=== PATIENT | male | born 2000 | race Caucasian/White ===

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

== ENCOUNTER → 2023-10-31 | Outpatient (CLI) | payer BC ==
--- NOTE | 2023-10-31 15:08 | US ---
EXAMINATION TYPE: US abdomen limited DATE OF EXAM: 10/31/2023 COMPARISON: NONE CLINICAL INDICATION: Male, 23 years old with history of R22.2 LOCALIZED SWELLING, MASS AND Lump, trun k; Patient states that he has a scar that has been bothering him.. 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 He states that his doctor wants to see if there is anythin g under the scar that can be removed. Area of concern was scanned, no sonographic abnormalities seen with ultrasound today
== END | disposition home or self-care (01) ==
LOC: RADUSWWP 11:31
PROVIDERS: ATTEND Surgery Plastic and Reconstructive Surgery
DX: L90.5 Scar conditions and fibrosis of skin (principal); R22.2 Localized swelling, mass and lump, trunk
CPT/HCPCS: 76705

== ENCOUNTER → 2023-12-23 | Outpatient (CLI) | payer BC ==
[2023-12-23 17:30] LABS: HCT 46.4 % (39.6-50.0); HGB 15.9 g/dL (13.0-17.0); MCH 28.8 pg (27.0-32.0); MCHC 34.3 g/dL (32.0-37.0); MCV 84.1 FL (80.0-97.0); Mean Platelet Volume 11.9 FL (9.5-12.2); NRBC Per 100 WBC 0 X 10*3/uL (0.00-0.01); Platelet Count 217 X 10*3/uL (140-440); RBC 5.52 X 10*6/uL (4.40-5.60); RDW 13.1 % (11.5-14.5); WBC 5.06 X 10*3/uL (4.50-10.00)
== END | disposition home or self-care (01) ==
LOC: LABPAT 10:07
PROVIDERS: ATTEND Surgery Plastic and Reconstructive Surgery
DX: Z01.812 Encounter for preprocedural laboratory examination (principal)
CPT/HCPCS: 36415; 85027

== ENCOUNTER 2023-12-25 06:45 | Day surgery (SDC) | payer BC ==
[2023-12-22 14:02] VITALS: BMI 28.1
[~2023-12-25 06:45] MED LIST: ONDANSETRON 4 MG/2 ML VIAL IVP PRN; Pre Op ABX Message 1 EACH MISC MISCELLANE ONE
[2023-12-25] MEDS ORDERED: SCOPOLAMINE 1 MG/72 HR PATCH TRANSDERM ONE (07:29)
[2023-12-25] MEDS: LACTATED RINGERS 1,000 ML IV SCH (07:40)
[2023-12-25] MEDS: ACETAMINOPHEN TAB 500 MG TAB PO PRN (08:03)
[2023-12-25] MEDS: MELOXICAM 7.5 MG TAB PO PRN (08:03)
[2023-12-25] MEDS: DEXAMETHASONE SOD PHOSPHATE 4 MG/ML 1 ML VIAL IV ONE (08:04)
[2023-12-25] MEDS: ONDANSETRON 4 MG/2 ML VIAL IVP ONE (08:04)
[2023-12-25] MEDS: HEPARIN SODIUM,PORCINE 5,000 UNIT/ML 1 ML VIAL SQ PRN (08:13)
--- NOTE | 2023-12-25 08:56 | P.GSHP ---
History of Present Illness H&P Date: 12/25/23 CHIEF COMPLAINT: History of intra-abdominal adhesions HISTORY OF PRESENT ILLNESS: The patient is a 23-year-old male who presents with history of intra-abdominal adhesions from prior surgeries including increasing abdominal pain. He now presents for diagnostic laparoscopy including lysis of adhesions. PAST MEDICAL HISTORY: Please see list. PAST SURGICAL HISTORY: Please see list. MEDICATIONS: Please see list. ALLERGIES: Please see list. SOCIAL HISTORY: No illicit drug use FAMILY HISTORY: No reports of Crohn disease or ulcerative colitis. REVIEW OF ORGAN SYSTEMS: CONSTITUTIONAL: Denies any fever or chills. Denies recent weight loss or weight gain. HEENT: Denies any trouble with vision, hearing or nosebleeds. No difficulty swallowing. LYMPHATIC: The patient denies any lumps and bumps around the neck. ENDOCRINE: Denies any thyroid disorders. Denies any blood sugar glucose intolerance. RESPIRATORY: Denies pneumonia. Denies any troubles with breathing or dyspnea on exertion. CARDIOVASCULAR: Denies any chest pain, palpitations, or recent heart attacks. GASTROINTESTINAL: History of constipation. GENITOURINARY: Denies any blood in urine or increased urinary frequency. MUSCULOSKELETAL: Denies any back pain, stiffness, joint arthritis. NEUROLOGIC: Denies any numbness or tingling along the distal extremities. No seizure disorders or headaches. PSYCHIATRIC: Denies depression or suidical ideation. HEMATOLOGIC: Denies any abnormal bleeding or bruising. BREASTS: Denies any breast lumps, pain or nipple discharge. PHYSICAL EXAM: GENERAL: Well-developed pleasant male in no acute distress. HEENT: No scleral icterus. Extraocular movements grossly intact. Moist buccal mucosa. NECK: Supple without lymphadenopathy. CHEST: Unlabored respirations. Equal bilateral excursions. CARDIOVASCULAR: Regular rate and rhythm. Distal 2+ pulses. ABDOMEN: Soft, nondistended. Tender generalized abdominal pain. MUSCULOSKELETAL: No clubbing, cyanosis, or edema. SKIN: Well perfused. PSYCH: Alert and oriented to self, place and time ASSESSMENT: 1. Abdominal pain 2. History of prior open laparotomy 3. Intra-abdominal adhesions. PLAN: 1. Robotic lysis of adhesions were described in detail including risk of injury to the intestine, need for further surgery, and open technique. 2. DVT prophylaxis. 3. Antibiotic prophylaxis. Past Medical History Past Medical History: No Reported History History of Any Multi-Drug Resistant Organisms: None Reported Past Surgical History: Appendectomy Additional Past Surgical History / Comment(s): ruptured appendix with abd abscess (08/2018) Past Anesthesia/Blood Transfusion Reactions: No Reported Reaction Past Psychological History: Anxiety, Depression Smoking Status: Former smoker Past Alcohol Use History: Rare Additional Past Alcohol Use History / Comment(s): quit smoking over a year ago, smoked approx 1 year. Past Drug Use History: None Reported - Past Family History Mother Family Medical History: No Reported History Medications and Allergies Home Medications Medication Instructions Recorded Confirmed Type No Known Home Medications 12/22/23 12/25/23 History Allergies Allergy/AdvReac Type Severity Reaction Status Date / Time No Known Allergies Allergy Verified 12/25/23 07:39 Surgical - Exam Vital Signs Temp Pulse Resp BP Pulse Ox 97.8 F 63 16 132/62 100 12/25/23 07:42 12/25/23 07:42 12/25/23 07:42 12/25/23 07:42 12/25/23 07:42
[2023-12-25 09:15] LABS: Basophils % (A) 1 %; Eosinophils # (A) 0.1 k/uL (0-0.7); Eosinophils % (A) 2 %; HCT 41.9 % (39.0-53.0); HGB 14.9 gm/dL (13.0-17.5); Lymphocytes # (A) 1.4 k/uL (1.0-4.8); Lymphocytes % (A) 29 %; MCH 29.4 pg (25.0-35.0); MCHC 35.6 g/dL (31.0-37.0); MCV 82.6 fL (80.0-100.0); Monocytes # (A) 0.3 k/uL (0-1.0); Monocytes % (A) 6 %; Neutrophils # (A) 2.8 k/uL (1.3-7.7); Neutrophils % (A) 60 %; Platelet Count 170 k/uL (150-450); RBC 5.07 m/uL (4.30-5.90); RDW 13.5 % (11.5-15.5); WBC 4.7 k/uL (3.8-10.6)
[2023-12-25 09:22] LABS: ALT 53 U/L (4-49); AST 42 U/L (17-59); African American GFR (CKD) >90 (>60 ml/min/1.73 sqM); Albumin 4.1 g/dL (3.5-5.0); Alkaline Phosphatase 88 U/L (38-126); Anion Gap 7 mmol/L; Blood Urea Nitrogen 12 mg/dL (9-20); Calcium 9.3 mg/dL (8.4-10.2); Carbon Dioxide 24 mmol/L (22-30); Chloride 109 mmol/L (98-107); Glucose 96 mg/dL (74-99); Non-African American GFR(CKD) >90 (>60 ml/min/1.73 sqM); Potassium 4.1 mmol/L (3.5-5.1); Sodium 140 mmol/L (137-145); Total Bilirubin 0.8 mg/dL (0.2-1.3); Total Protein 6.5 g/dL (6.3-8.2)
[2023-12-25] MEDS ORDERED: GLYCOPYRROLATE 0.2 MG/ML 2 ML VIAL ONE (09:55)
[2023-12-25] MEDS ORDERED: NEOSTIGMINE 1 MG/ML 10 ML VIAL ONE (09:55)
[2023-12-25] MEDS ORDERED: ROCURONIUM 10 MG/ML (5 ML VIAL) IV ONE (09:55)
[2023-12-25] MEDS ORDERED: PHENYLEPHRINE-0.9% NACL SYG 1,000 MCG/10 ML SYRINGE ONE (09:55)
[2023-12-25] MEDS ORDERED: fentaNYL (PF) 50 MCG/ML 2 ML AMP ONE (09:55)
[2023-12-25] MEDS ORDERED: SUCCINYLCHOLINE CHLORIDE 200 MG/10 ML VIAL IV ONE (09:55)
[2023-12-25] MEDS ORDERED: PROPOFOL 10 MG/ML 20 ML VIAL IV ONE (09:55)
[2023-12-25] MEDS ORDERED: LIDOCAINE 1% INJ 10MG/ML (20 ML MDV) ONE (09:55)
[2023-12-25] MEDS ORDERED: ESMOLOL 100 MG/10 ML VIAL ONE (09:55)
[2023-12-25] MEDS ORDERED: MIDAZOLAM 2 MG/2 ML VIAL ONE (09:55)
[2023-12-25] MEDS: LACTATED RINGERS 1,000 ML IV ONE ×2 (10:25→12:03)
[2023-12-25] MEDS: LIDOCAINE 2%-EPI 1:100,000 20 ML VIAL SQ ONE (10:30)
[2023-12-25 11:33] VITALS: TEMP 97
[2023-12-25] MEDS: HYDROmorphone 0.5 MG/0.5 ML SYRINGE IVP PRN (11:49)
--- NOTE | 2023-12-25 11:54 | P.OP ---
Date of Procedure: 12/25/23 Description of Procedure: SURGEON: ISABELLE CIFUENTES MD PREOPERATIVE DIAGNOSES: 1. Periumbilical and lower abdominal pain 2. History of open appendectomy due to perforation POSTOPERATIVE DIAGNOSES: 1. Periumbilical and lower abdominal pain 2. History of open appendectomy due to perforation OPERATION: 1. Robotic-assisted da Benja Xi laparoscopic with lysis of adhesions ESTIMATED BLOOD LOSS: 5 mL. SPECIMENS REMOVED: None. COMPLICATIONS: None. OPERATIVE FINDINGS: 1. No inguinal hernias identified 2. Greater omentum to abdominal wall adhesion of the pelvis 3. Small bowel unremarkable without dilation 4. No abdominal wall hernias identified INDICATIONS: The patient is a 23-year-old male who presents with moderate lower abdominal pain. Has personal history of prior open appendectomy due to perforation. Surgical intervention with diagnostic laparoscopy, lysis of adhe sions were described. Informed consent was obtained. Robotic assisted laparoscopic approach was described. Benefits and risks of the procedure including but not limited to bleeding, infection was described. Informed consent was obtained. DESCRIPTION OF PROCEDURE: Patient was brought to the operating room, placed in supine position. After general induction, the abdomen had been prepped and draped in standard sterile fashion. The robotic da Benja XI system was primed. After a timeout protocol was performed, the patient had been prepped and draped in standard sterile fashion. The robot was docked along the left lateral abdomen. Please note prior to docking of the robot; however, a 5 mm 0 degrees laparoscopic trocar entry was performed along the left upper quadrant. Next, three 8 mm robotic ports were placed along the left lateral abdominal wall abdomen. Trochars were placed at least 10 to 15 cm away from the target anatomy. Instruments including graspers and scissors with cautery were interchanged by the plumber assistant. I had sat at the console. Greater omental adhesion to the midline and lower abdominal wall at the pelvis was identified and sharply divided using vessel sealer. Hemostasis was checked. No interloop adhesions involving the right lower quadrant or pelvis were found. No bowel or inguinal hernias were found. No large or small bowel obstruction was identified. The robot was undocked. All pneumoperitoneum and instruments were evacuated from the abdominal cavity. The incisions were reapproximated using 4-0 Monocryl in an interrupted subcuticu lar fashion. Please note along the trocar sites, local anesthetic was placed as a field block prior to insertion of all instruments. Exofin was applied to the skin. At the end of the procedure needle, sponge, and instrument count had been verified correct by the refinery technician. The patient was transferred to postanesthesia care unit in stable condition. Plan - Discharge Summary Discharge Rx Participant: No New Discharge Prescriptions: New Simethicone [Gas-X] 125 mg PO AC-TID PRN #20 capsule PRN Reason: Pain Ibuprofen [Motrin] 600 mg PO Q8HR PRN #30 tab PRN Reason: Pain Acetaminophen Tab [Tylenol Tab] 1,000 mg PO Q6HR PRN #30 tablet PRN Reason: Pain Discharge Medication List Acetaminophen Tab [Tylenol Tab] 1,000 mg PO Q6HR PRN #30 tablet 12/25/23 [Rx] Ibuprofen [Motrin] 600 mg PO Q8HR PRN #30 tab 12/25/23 [Rx] Simethicone [Gas-X] 125 mg PO AC-TID PRN #20 capsule 12/25/23 [Rx] Follow up Appointment(s)/Referral(s): Isabelle Cifuentes MD [STAFF PHYSICIAN] - 12/30/23 4:00 pm ([facility] - DR WILL CALL YOU BETWEEN 8 am to 8 pm) Patient Instructions/Handouts: Lysis of Abdominal Adhesions (GEN) Activity/Diet/Wound Care/Special Instructions: May shower. No bath tub soaks or swimming for two weeks until January 07 Diet as tolerated. Use Tylenol and ibuprofen or Aleve scheduled for the next 24-48 hours for best pain relief. Use ice along incisions for today to prevent swelling. Discharge Disposition: HOME SELF-CARE
[2023-12-25 12:43] VITALS: RESP 18
[2023-12-25 13:18] VITALS: BP 138/77; PULSE 84
== END 2023-12-25 13:12 | disposition home or self-care (01) ==
LOC: OR 06:45
PROVIDERS: ATTEND Surgery Plastic and Reconstructive Surgery
DX: K66.0 Peritoneal adhesions (postprocedural) (postinfection) (principal); R10.30 Lower abdominal pain, unspecified; R10.33 Periumbilical pain; Z90.49 Acquired absence of other specified parts of digestive tract; Z87.891 Personal history of nicotine dependence
CPT/HCPCS: 44180; S2900; 80053; 85025